=== PATIENT | male | born 1995 | race Caucasian/White ===

== ENCOUNTER 2018-12-03 23:33 | Emergency (ER) | payer BC ==
[~2018-12-03] VITALS: Ht 180.3 cm; Wt 74.8 kg
--- NOTE | 2018-12-03 23:46 | NUR ---
ERMD at bedside for MSE
--- NOTE | 2018-12-03 23:50 | NUR ---
Patient ambulated with stable gait. Speech is clear, speaks in complete sentences. No neuro deficits noted. Patient came for c/o asthma exacerbation. Respiratory even and unlabored. Patient reports chest tightness. Denies any n/v/d.
[2018-12-04] MEDS: ALBUTEROL SULFATE 2.5 MG/3 ML NEBU NEB ONE (00:23)
[2018-12-04] MEDS: IPRATROPIUM BROMIDE 0.5 MG/2.5 ML NEBU NEB ONE (00:23)
[2018-12-04] MEDS ORDERED: IPRATROPIUM BROMIDE 0.5 MG/2.5 ML NEBU ONE (00:31)
[2018-12-04] MEDS ORDERED: ALBUTEROL SULFATE 2.5 MG/3 ML NEBU ONE (00:31)
[2018-12-04 01:16] VITALS: BP 121/81
--- NOTE | 2018-12-04 01:16 | NUR ---
Patient discharged to home in stable conditon. Written and verbal after care instructions given. Patient verbalizes understanding of instructions. Patient ambulated with stable gait.
== END 2018-12-04 01:17 | disposition home or self-care (01) ==
LOC: ER 23:38
DX: J45.909 Unspecified asthma, uncomplicated (principal); F12.10 Cannabis abuse, uncomplicated
CPT/HCPCS: 71045; 93005; A4663; J3590